=== PATIENT | male | born 1940 | race Caucasian/White ===

== ENCOUNTER 2023-04-27 10:22 | Outpatient (CLI) | payer MEDICARE, SELFPAY ==
--- NOTE | 2023-04-27 | ECHO_ITS ---
Patient Info Name: Lawrence Ray Age: 83 years : 1940 Gender: Male Ht: 75 in Wt: 253 lbs BSA: 2.49 m2 HR: 92 bpm BP: 119 / 71 mmHg Heart Rhythm: Atrial Fibrillation Technical Quality: Fair Exam Date: 04/27/2023 11:19 AM Exam Location: [facility] Patient Status: Outpatient Admit Date: 04/27/2023 Staff Ordering Physician: Carlos Eduardo Mendez MD Machine Operator Replanter: Sima Murry RDCS Attending Provider: Carlos Eduardo Mendez MD Referring Physician: Vanessa ZELAYA; Exam Type: CA echo dop color flow w con Study Info Indications I48.1 - Persistent atrial fibrillation Complete two-dimensional, color flow and Doppler transthoracic echocardiogram is performed with contrast to opacify the left ventricle and to improve the deliniation of the left ventricle endocardial borders. Contrast/Agitated Saline Contrast/Ag. Saline: Definity Amount: 4.00 ml Administered By: Sima Murry RDCS New IV Access: Antecubital Space and Right Site Condition: No extravasation, Site dressing applied and IV removed Summary 1. Left ventricular chamber dimension is normal. 2. Left ventricular systolic function is normal, estimated at 60-65%. 3. Left ventricular septal wall motion is abnormal with septal motion related to pacing. 4. Right ventricular chamber dimension is normal. 5. Right ventricular systolic function is normal. 6. Linear artifact in right ventricle suggestive of catheter(s), pacemaker lead(s), or ICD lead(s). 7. Left atrial chamber dimension is severely enlarged. 8. Right atrial chamber dimension is severely enlarged. 9. Linear artifact in the right atrium suggestive of catheter(s), pacemaker lead(s), or ICD lead(s). 10. There is mild mitral valve regurgitation. 11. There is mild tricuspid valve regurgitation. Left Ventricle Left ventricular chamber dimension is normal. Left ventricular systolic function is normal, estimated at 60-65%. Left ventricular septal wall motion is abnormal with septal motion related to pacing. The left ventricular diastolic function is indeterminate. Right Ventricle Linear artifact in right ventricle suggestive of catheter(s), pacemaker lead(s), or ICD lead(s). Right ventricular chamber dimension is normal. Right ventricular systolic function is normal. Left Atria Left atrial chamber dimension is severely enlarged. Right Atria Linear artifact in the right atrium suggestive of catheter(s), pacemaker lead(s), or ICD lead(s). Right atrial chamber dimension is severely enlarged. Atrial Septum Intact interatrial septum visualized by color flow imaging. Aortic Valve The aortic valve is probable trileaflet. There is no aortic valve stenosis. There is no aortic valve regurgitation. There is moderate aortic valve calcification. Pulmonic Valve There is trace pulmonic regurgitation. Mitral Valve There is mild mitral valve regurgitation. The mitral valve annulus is mildly calcified. Tricuspid Valve There is mild tricuspid valve regurgitation. Pericardium/Pleural The pericardium appears epicardial fat pad. There is no pericardial effusion. Inferior Vena Cava Normal inferior vena cava with <50% collapse upon inspiration consistent with elevated right atrial pressure, 8 mmHg. Aorta The aortic root size at the sinus of Valsalva is normal. Left Ventricular Outflow Tract Name Value Normal LVOT 2D
[2023-04-27] MEDS: PERFLUTREN LIPID MICROSPHERES 1.5 ML VIAL DILUTED TO 10 ML TOTAL VOLUME IV PUSH (12:00)
--- NOTE | 2023-04-27 12:40 | IVDEFINITY ---
Prior to administration of IV Definity the patient was educated on the risks and benefits of the imaging enhancing agent including potential adverse side effects. The patient verbalized understanding. Allergies were verified. No exclusion criteria were identified and at least one of the following inclusion criteria were met: 1) physician request, 2) patient technically difficult to image (per the [place] [employer] guidelines of two or more segments not discernable within the apical view), or 3) questionable left ventricular function. ?
== END 2023-04-27 10:23 | disposition home or self-care (01) ==
LOC: ANHCARD 10:24
PROVIDERS: PCP Family Medicine; Visit Provider Internal Medicine Cardiovascular Disease
DX: I48.11 Longstanding persistent atrial fibrillation (principal); R93.1 Abnormal findings on diagnostic imaging of heart and coronary circulation; I08.1 Rheumatic disorders of both mitral and tricuspid valves; Z95.0 Presence of cardiac pacemaker
CPT/HCPCS: C8929; Q9957